=== PATIENT | male | born 1985 | race Caucasian/White ===

== ENCOUNTER 2019-11-28 16:40 | Emergency (ER) | payer BC ==
--- NOTE | 2019-11-28 17:48 | EDM.PDOC ---
Scribed by Monalisa Winn 11/28/19 [id number] for Calos Chavez MD ED HPI GENERAL MEDICAL PROBLEM - General Chief Complaint: ENT Problem Stated Complaint: POSSIBLE TICK IN HEAR Time Seen by Provider: 11/28/19 16:44 Source of Information: Reports: Patient, RN, RN Notes Reviewed History Limitations: Reports: No Limitations - History of Present Illness INITIAL COMMENTS - FREE TEXT/NARRATIVE: Patient presents to ER by POV with complaint that he has had pressure in his right ear off and on but worse yesterday. Feels he cannot hear out of it right and feels a tickle. Thinks maybe he has a "tick in it or something". States his girlfriend said there was something black in it. Has been using an OTC ear drop without relief. Onset: Today Duration: Constant Location: Reports: Other (ear) Quality: Reports: Ache Severity: Mild Improves with: Reports: None Worsens with: Reports: None Associated Symptoms: Reports: No Other Symptoms - Related Data Allergies Allergy/AdvReac Type Severity Reaction Status Date / Time No Known Allergies Allergy Verified 11/28/19 16:43 Home Meds: Home Meds . [No Known Home Meds] 11/28/19 [History] ED ROS ENT - Review of Systems Review Of Systems: Comprehensive ROS is negative, except as noted in HPI. ED EXAM, ENT - Physical Exam Exam: See Below Exam Limited By: No Limitations General Appearance: Alert, WD/WN, No Apparent Distress Eye Exam: Bilateral Eye: Normal Inspection Ears: Normal External Exam, Normal Canal (Left), Hearing Grossly Normal (Left), Hearing Loss (Muffled at right side), Cerumen Impaction (Rt side, dark cerumen, no FB) Nose: Normal Inspection Mouth/Throat: Normal Inspection Head: Atraumatic, Normocephalic Neck: Normal Inspection Respiratory/Chest: No Respiratory Distress Neurological: Alert, Oriented, CN II-XII Intact, No Motor/Sensory Deficits Psychiatric: Normal Mood Skin: Warm, Dry, Intact, Normal Color, No Rash Course - Vital Signs Last Recorded V/S: Last Vital Signs Temp 98 F 11/28/19 16:41 Pulse 50 L 11/28/19 16:41 Resp 16 11/28/19 16:41 BP 123/74 11/28/19 16:41 Pulse Ox 100 11/28/19 16:41 - Orders/Labs/Meds Orders: Active Orders 24 hr Category Date Time Status Ear Irrigation [RC] ASDIRECTED Care 11/28/19 16:49 Active - Re-Assessments/Exams Free Text/Narrative Re-Assessment/Exam: 11/28/19 17:46 Cerumen removed by irrigation and curette by RN. No complications. Departure - Departure Time of Disposition: 17:46 Disposition: Home, Self-Care 01 Condition: Good Clinical Impression: Cerumen impaction Qualifiers: Laterality: right Qualified Code(s): H61.21 - Impacted cerumen, right ear - Discharge Information *PRESCRIPTION DRUG MONITORING PROGRAM REVIEWED*: Not Applicable *COPY OF PRESCRIPTION DRUG MONITORING REPORT IN PATIENT MIESHA: Not Applicable Instructions: Earwax Buildup, Adult Forms: ED Department Discharge Additional Instructions: Use over the counter Debrox ear drops. Follow directions on package/label for dosing. Follow up in clinic if not completely improved in 3 days. Sepsis Event Note (ED) - Focused Exam Vital Signs: Vital Signs Temp Pulse Resp BP Pulse Ox 11/28/19 16:41 98 F 50 L 16 123/74 100 - My Orders Last 24 Hours: My Active Orders 11/28/19 16:49 Ear Irrigation [RC] ASDIRECTED - Assessment/Plan Last 24 Hours: My Active Orders 11/28/19 16:49 Ear Irrigation [RC] ASDIRECTED I have read and agree with the documentation that has been completed regarding this visit. By signing this record, I attest that the documentation was completed in my physical presence and is an accurate record of the encounter.
== END 2019-11-28 17:54 | disposition home or self-care (01) ==
LOC: DL.ED 16:40
DX: H61.21 Impacted cerumen, right ear (principal)
CPT/HCPCS: 69210; 99282